=== PATIENT | female | born 1955 | race Asian ===

== ENCOUNTER 2019-12-31 12:32 | Inpatient (IN) | payer SELFPAY ==
[~2019-12-31] VITALS: Ht 157.5 cm; Wt 53.4 kg
[2019-12-31] MEDS ORDERED: ACETAMINOPHEN 650 MG SUPP ONE (13:19)
[2019-12-31] MEDS ORDERED: ACETAMINOPHEN 650 MG SUPP PR PRN (13:30)
[2019-12-31] MEDS ORDERED: SODIUM CHLORIDE 0.9% 1,000ML IVBOLUS ONE ×2 (13:30→16:30)
[2019-12-31] MEDS ORDERED: PIPERACILLIN/TAZO/PMX 3.375GM 50 ML IVPB ONE (13:30)
--- NOTE | 2019-12-31 13:31 | NUR ---
PER MD WATCH PT AT 85% ON VAPOTHERM. RR 40S. CRACKLES BILAT. RECTAL TYLENOL.
[2019-12-31] MEDS ORDERED: PIPERACILLIN/TAZO/PMX 3.375GM 50 ML ONE (13:33)
--- NOTE | 2019-12-31 13:46 | NUR ---
CALLED LAB RE: DELAY IN BLOOD. STS ON THE WAY. DAUGHTER AT BEDSIDE PIN MACHINE OPERATOR AWARE. EDUCATION PROVIDED.
--- NOTE | 2019-12-31 13:52 | NUR ---
DAUGHTER: SHEELA [phone]
--- NOTE | 2019-12-31 13:57 | NUR ---
IN ROOM FOR UPDATE, SPEAKING W DAUGHTER, DARCY PULIDO AFTER BLOOD CULTURES X2.
[2019-12-31 14:20] LABS: MEAN CORPUSCULAR HEMOGLOBIN 28.4 pg (27.0-34.8); MEAN CORPUSCULAR HGB CONC 32.2 g/dL (32.4-35.8); MEAN PLATELET VOLUME 8.9 fL (7.4-10.4); PLATELET COUNT 227 x10^3/uL (130-400); RED BLOOD COUNT 5.21 x10^6/uL (3.82-5.3)
--- NOTE | 2019-12-31 14:21 | NUR ---
PLAN TO INTUBATE. DAUGHTER TAKING ALL BELONGINGS.
[2019-12-31 14:25] LABS: ALBUMIN 2.7 g/dL (3.4-5.0); ANION GAP 8 mmol/L (5-15); CALCIUM 8.6 mg/dL (8.5-10.1); CHLORIDE 102 mmol/L (98-107); CREATININE 0.94 mg/dL (0.55-1.02)
[2019-12-31 14:30] LABS: TROPONIN I 0.034 ng/mL (0.000-0.045)
--- NOTE | 2019-12-31 14:40 | NUR ---
1425 20 MG ETOMIDATE/100 SUCCINOCHOLINE. NUMBER 8 TUBE 22 @ THE LIP PROP GTT INITIATED.
[2019-12-31 14:45] LABS: MD YES
[2019-12-31] MEDS ORDERED: FENTANYL PF 100 MCG/2ML ONE (14:57)
[2019-12-31] MEDS ORDERED: SUCCINYLCHOLINE 20 MG/ML, 10ML ONE (15:00)
[2019-12-31] MEDS ORDERED: ETOMIDATE 20 MG/10 ML ONE (15:00)
[2019-12-31] MEDS ORDERED: PROPOFOL 10 MG/ML, 100ML IV ONE (15:00)
[2019-12-31] MEDS ORDERED: SUCCINYLCHOLINE 20 MG/ML, 10ML IVPush ONE (15:00)
[2019-12-31] MEDS ORDERED: ETOMIDATE 20 MG/10 ML IV ONE (15:00)
[2019-12-31] MEDS ORDERED: PROPOFOL 100 ML IV PRN ×2 (15:00→15:30)
--- NOTE | 2019-12-31 15:01 | NUR ---
100 MCG FENTANYL PER VERBAL ORDER.
[2019-12-31] MEDS ORDERED: MIDAZOLAM 1 MG/ML, 2ML ONE ×2 (15:02→17:15)
--- NOTE | 2019-12-31 15:10 | NUR ---
bp low d/t difficulty sedating pt, 2nd liter ns infusing. as
--- NOTE | 2019-12-31 15:14 | NUR ---
1500-200 cc urine emptied out of summers. as
[2019-12-31] MEDS ORDERED: [UNRECOGNIZED DRUG - REMARK] (15:18)
--- NOTE | 2019-12-31 15:20 | NUR ---
prop paused. as
[2019-12-31] MEDS ORDERED: VANCOMYCIN PER PHARMACY MC PRN (15:30)
[2019-12-31] MEDS ORDERED: SENNA 176 MG/5 ML ORAL SOL NG PRN (15:30)
[2019-12-31] MEDS ORDERED: SENNA/DOCUSATE TABLET NG PRN (15:30)
[2019-12-31] MEDS ORDERED: LORazepam 2 MG/ML, 1ML IVPush PRN (15:30)
[2019-12-31] MEDS ORDERED: POLYETHYLENE GLYCOL 17 GM PACKET PO PRN (15:30)
[2019-12-31] MEDS ORDERED: ONDANSETRON 2MG/ML, 2ML IVPush PRN (15:30)
[2019-12-31] MEDS ORDERED: LABETALOL 5MG/ML, 20ML IVPush PRN (15:30)
[2019-12-31] MEDS ORDERED: DEXTROSE 50%, 50ML SYRINGE IVPush PRN (15:30)
[2019-12-31] MEDS ORDERED: LACTULOSE 20 GM/30 ML UDC NG PRN (15:30)
[2019-12-31] MEDS ORDERED: DEXTROSE 4 GM TAB.CHEW PO PRN (15:30)
[2019-12-31] MEDS ORDERED: PHARMACY MAY ADJ FOR RENAL FX MC SCH (15:30)
[2019-12-31] MEDS ORDERED: FENTANYL PF 100 MCG/2ML IV ONE (15:30)
[2019-12-31] MEDS ORDERED: NOREPINEPHRINE 32 MG in SODIUM CHLORIDE 0.9% 218 ML IV PRN (15:30)
[2019-12-31] MEDS ORDERED: LIDOCAINE-MPF 1%, 2ML ENDO PRN (15:30)
[2019-12-31] MEDS ORDERED: BISACODYL 10 MG SUPP PR PRN ×2 (15:30)
[2019-12-31] MEDS ORDERED: ONDANSETRON 2MG/ML, 2ML IV PRN (15:30)
[2019-12-31] MEDS ORDERED: MIDAZOLAM 1 MG/ML, 2ML IVPush ONE (15:30)
[2019-12-31] MEDS: DEXAMETHASONE 4 MG/ML, 1ML IVPush ONE ×2 (15:30→16:41)
[2019-12-31] MEDS: PIPERACILLIN/TAZO/PMX 3.375GM 50 ML IV SCH ×2 (15:30→23:19)
[2019-12-31] MEDS ORDERED: MIDAZOLAM HCL 50 MG in SODIUM CHLORIDE 0.9% 40 ML IV PRN (15:30)
[2019-12-31] MEDS ORDERED: GLUCAGON 1 MG IM PRN (15:30)
[2019-12-31] MEDS ORDERED: ENALAPRILAT 1.25 MG/ML, 2ML IVPush PRN (15:30)
[2019-12-31 15:32] LABS: BAND#(MANUAL) 0.49 x10^3/uL; BANDS%(MANUAL) 1 % (0-7); OTHER CELLS # (MANUAL) 0.98 x10^3/uL (0-0); OTHER CELLS % (MANUAL) 2 % (0-0); SEG#(MANUAL) 9.78 x10^3/uL (1.8-6.8); SEGS% (MANUAL) 20 % (42-75)
[2019-12-31 15:34] LABS: <RBC MORPHOLOGY> NORMAL
[2019-12-31 15:36] LABS: LYMPHS% (MANUAL) 64 % (22-44); MONOS#(MANUAL) 0.98 x10^3/uL (0.3-2.7); MONOS% (MANUAL) 2 % (2-9); REACTIVE LYMPHS # (MANUAL) 5.87 x10^3/uL (0-0); REACTIVE LYMPHS % (MANUAL) 12 % (0-0)
--- NOTE | 2019-12-31 15:40 | NUR ---
versed gtt infusing, 5 mg versed ivpush per md, pt very awake, md was in room. as
[2019-12-31 15:42] LABS: <PLATELET ESTIMATE> ADEQUATE; <PLT MORPHOLOGY> NORMAL PLT MORPH
[2019-12-31] MEDS ORDERED: REMDESIVIR 200 MG in SODIUM CHLORIDE 0.9% 250 ML IVPB ONE (16:00)
--- NOTE | 2019-12-31 16:10 | NUR ---
bp low boscovich aware plan levophed. as
--- NOTE | 2019-12-31 16:14 | NUR ---
1600-15 cc urine out. as
[2019-12-31] MEDS ORDERED: NOREPINEPHRINE 8 MG in SODIUM CHLORIDE 0.9% 242 ML IV PRN (16:30)
[2019-12-31] MEDS ORDERED: ENOXAPARIN 40 MG/0.4 ML ONE (16:36)
[2019-12-31] MEDS ORDERED: DEXAMETHASONE 4 MG/ML, 1ML ONE (16:36)
[2019-12-31] MEDS: ENOXAPARIN 40 MG/0.4 ML SQ SCH (16:41)
[2019-12-31 16:49] LABS: TRIGLYCERIDES 134 mg/dL (50-200)
--- NOTE | 2019-12-31 16:57 | NUR ---
covid swab walked to lab. as
[2019-12-31 16:58] LABS: TROPONIN I 0.131 ng/mL (0.000-0.045)
[2019-12-31] MEDS: ASCORBIC ACID 500 MG TABLET PO SCH (17:00)
[2019-12-31] MEDS: FENTANYL PF 1,000 MCG in SODIUM CHLORIDE 0.9% 80 ML IV PRN (17:03)
--- NOTE | 2019-12-31 17:04 | NUR ---
pt lightly sedated, arouses to touch, fentanyl gtt initiated. as
--- NOTE | 2019-12-31 17:09 | NUR ---
1700- 10 cc urine output. as
--- NOTE | 2019-12-31 17:36 | NUR ---
plan for centrla/art line. daughter updated on phone. per daughter, pt takes daily meds for htn and irregular heart beat but they are in french so unknown names. as
--- NOTE | 2019-12-31 18:00 | NUR ---
pt sedated w vss, awaiting md for lines. as
--- NOTE | 2019-12-31 18:58 | NUR ---
central line/art line by md. stone. as
[2019-12-31] MEDS ORDERED: PHARMACOKINETIC MONITORING MC PRN (19:00)
--- NOTE | 2019-12-31 19:08 | NUR ---
REPORT TO SANJAY SCHROEDER.
[2019-12-31] MEDS ORDERED: VANCOMYCIN 1,500 MG in SODIUM CHLORIDE 0.9% 250 ML IV ONE (20:00)
[2019-12-31] MEDS: SODIUM CHLORIDE FLUSH 10ML SYR IVF SCH (20:31)
[2019-12-31] MEDS: MIDAZOLAM HCL 50 MG in SODIUM CHLORIDE 0.9% 40 ML IV PRN (20:32)
[2019-12-31] MEDS: FAMOTIDINE 20 MG/2 ML IVPush SCH (20:57)
[2019-12-31 23:40] LABS: TROPONIN I 0.075 ng/mL (0.000-0.045)
[2020-01-01 03:10] LABS: RAPID INFLUENZA A Negative (Negative); RAPID INFLUENZA B Negative (Negative)
[2020-01-01 04:00] VITALS: BP 121/56
[2020-01-01 04:24] LABS: MEAN CORPUSCULAR HEMOGLOBIN 28.3 pg (27.0-34.8); MEAN CORPUSCULAR HGB CONC 32.4 g/dL (32.4-35.8); MEAN PLATELET VOLUME 8.7 fL (7.4-10.4); PLATELET COUNT 215 x10^3/uL (130-400); RED BLOOD COUNT 4.67 x10^6/uL (3.82-5.3)
[2020-01-01 04:32] LABS: ALANINE AMINOTRANSFERASE 42 U/L (12-78); ALBUMIN 2.1 g/dL (3.4-5.0); ANION GAP 8 mmol/L (5-15); CHLORIDE 110 mmol/L (98-107)
[2020-01-01 04:35] LABS: ALKALINE PHOSPHATASE 62 U/L (45-117); BILIRUBIN,TOTAL 0.9 mg/dL (0.2-1.0); CREATININE 0.74 mg/dL (0.55-1.02)
[2020-01-01] MEDS: FENTANYL PF 1,000 MCG in SODIUM CHLORIDE 0.9% 80 ML IV PRN (05:50)
[2020-01-01] MEDS: MIDAZOLAM HCL 50 MG in SODIUM CHLORIDE 0.9% 40 ML IV PRN (05:51)
[2020-01-01] MEDS: PIPERACILLIN/TAZO/PMX 3.375GM 50 ML IV SCH ×4 (05:59→23:26)
[2020-01-01 06:13] LABS: MD YES
[2020-01-01 07:07] LABS: LYMPH#(MANUAL) 35.55 x10^3/uL (1-3.4); LYMPHS% (MANUAL) 79 % (22-44); MONOS% (MANUAL) 2 % (2-9); REACTIVE LYMPHS # (MANUAL) 1.35 x10^3/uL (0-0); REACTIVE LYMPHS % (MANUAL) 3 % (0-0); SEGS% (MANUAL) 16 % (42-75)
[2020-01-01 07:08] LABS: <PLATELET ESTIMATE> ADEQUATE; <PLT MORPHOLOGY> NORMAL PLT MORPH; POLYCHROMASIA 1+
[2020-01-01] MEDS: POTASSIUM CHLORIDE 10% 40 MEQ/30 ML UDC PO SCH ×2 (08:09→22:55)
[2020-01-01] MEDS: ZINC SULFATE 220 MG CAPSULE PO SCH (08:09)
[2020-01-01] MEDS: CHOLECALCIFEROL 5,000u TAB PO SCH (08:09)
[2020-01-01] MEDS: ASCORBIC ACID 500 MG TABLET PO SCH ×2 (08:09→17:17)
[2020-01-01] MEDS: THIAMINE 100MG TABLET PO SCH (08:09)
[2020-01-01] MEDS: SENNA/DOCUSATE TABLET PO SCH (08:09)
[2020-01-01] MEDS: DEXAMETHASONE 4 MG/ML, 1ML IVPush SCH (08:10)
[2020-01-01] MEDS: SODIUM CHLORIDE FLUSH 10ML SYR IVF SCH ×2 (08:10→21:00)
[2020-01-01] MEDS: FAMOTIDINE 20 MG/2 ML IVPush SCH ×2 (08:10→22:55)
[2020-01-01] MEDS: PROPOFOL 100 ML IV PRN (09:10)
[2020-01-01] MEDS: ACETAMINOPHEN 325 MG TABLET PO PRN (10:20)
[2020-01-01] MEDS: VANCOMYCIN 1,200 MG in SODIUM CHLORIDE 0.9% 250 ML IV SCH (12:02)
[2020-01-01] MEDS: ENOXAPARIN 40 MG/0.4 ML SQ SCH (15:05)
[2020-01-01] MEDS ORDERED: VANCOMYCIN 1,200 MG in SODIUM CHLORIDE 0.9% 250 ML IV SCH (20:00)
[2020-01-01] MEDS: REMDESIVIR 100 MG in SODIUM CHLORIDE 0.9% 250 ML IVPB SCH (21:48)
[2020-01-02 03:12] LABS: MEAN CORPUSCULAR HEMOGLOBIN 28.3 pg (27.0-34.8); MEAN CORPUSCULAR HGB CONC 32.5 g/dL (32.4-35.8); MEAN PLATELET VOLUME 8.7 fL (7.4-10.4); PLATELET COUNT 207 x10^3/uL (130-400); RED BLOOD COUNT 4.54 x10^6/uL (3.82-5.3); RED CELL DISTRIBUTION WIDTH 15.2 % (9.6-15.2)
[2020-01-02 03:19] LABS: ALANINE AMINOTRANSFERASE 35 U/L (12-78); ANION GAP 8 mmol/L (5-15); CALCIUM 7.1 mg/dL (8.5-10.1); CHLORIDE 114 mmol/L (98-107); CREATININE 0.59 mg/dL (0.55-1.02)
[2020-01-02 03:21] LABS: ALKALINE PHOSPHATASE 57 U/L (45-117); BILIRUBIN,TOTAL 0.8 mg/dL (0.2-1.0); TOTAL PROTEIN 5.9 g/dL (6.4-8.2); VANCOMYCIN,RANDOM 7.9 mcg/mL
[2020-01-02 04:00] VITALS: BP 123/60
[2020-01-02] MEDS: PROPOFOL 100 ML IV PRN ×2 (04:01→20:50)
[2020-01-02 04:20] LABS: MD YES
[2020-01-02 04:27] LABS: LYMPH#(MANUAL) 12.65 x10^3/uL (1-3.4); LYMPHS% (MANUAL) 51 % (22-44); MONOS#(MANUAL) 0.74 x10^3/uL (0.3-2.7); MONOS% (MANUAL) 3 % (2-9); REACTIVE LYMPHS # (MANUAL) 3.72 x10^3/uL (0-0); REACTIVE LYMPHS % (MANUAL) 15 % (0-0); SEG#(MANUAL) 7.19 x10^3/uL (1.8-6.8); SEGS% (MANUAL) 29 % (42-75)
[2020-01-02 04:28] LABS: <PLATELET ESTIMATE> ADEQUATE; <PLT MORPHOLOGY> NORMAL PLT MORPH; <RBC MORPHOLOGY> NORMAL; OTHER CELLS % (MANUAL) 2 % (0-0)
[2020-01-02] MEDS: PIPERACILLIN/TAZO/PMX 3.375GM 50 ML IV SCH ×4 (04:50→23:26)
[2020-01-02] MEDS: VANCOMYCIN 1,200 MG in SODIUM CHLORIDE 0.9% 250 ML IV SCH (05:33)
[2020-01-02] MEDS: INSULIN LISPRO 100 UNITS/ML, PEN SQ-INSULIN SCH ×4 (07:30→22:12)
[2020-01-02] MEDS: ZINC SULFATE 220 MG CAPSULE PO SCH (09:22)
[2020-01-02] MEDS: DEXAMETHASONE 4 MG/ML, 1ML IVPush SCH (09:22)
[2020-01-02] MEDS: FUROSEMIDE 40 MG/4 ML IV SCH ×2 (09:22→17:11)
[2020-01-02] MEDS: SENNA/DOCUSATE TABLET PO SCH (09:23)
[2020-01-02] MEDS: ASCORBIC ACID 500 MG TABLET PO SCH ×2 (09:23→17:11)
[2020-01-02] MEDS: SODIUM CHLORIDE FLUSH 10ML SYR IVF SCH ×2 (09:23→20:49)
[2020-01-02] MEDS: THIAMINE 100MG TABLET PO SCH (09:23)
[2020-01-02] MEDS: CHOLECALCIFEROL 5,000u TAB PO SCH (09:24)
[2020-01-02] MEDS: ENOXAPARIN 40 MG/0.4 ML SQ SCH (15:02)
[2020-01-02] MEDS: REMDESIVIR 100 MG in SODIUM CHLORIDE 0.9% 250 ML IVPB SCH (20:49)
[2020-01-02] MEDS: FAMOTIDINE 20 MG/2 ML IVPush SCH (22:10)
[2020-01-03 04:22] VITALS: BP 120/55
[2020-01-03 04:23] LABS: ALANINE AMINOTRANSFERASE 29 U/L (12-78); ALBUMIN 2.1 g/dL (3.4-5.0); ANION GAP 6 mmol/L (5-15); CALCIUM 7.2 mg/dL (8.5-10.1); CHLORIDE 111 mmol/L (98-107); TRIGLYCERIDES 168 mg/dL (50-200)
[2020-01-03 04:26] LABS: ALKALINE PHOSPHATASE 61 U/L (45-117); BILIRUBIN,TOTAL 0.7 mg/dL (0.2-1.0); TOTAL PROTEIN 6.1 g/dL (6.4-8.2)
[2020-01-03 04:46] LABS: MEAN CORPUSCULAR HEMOGLOBIN 28.3 pg (27.0-34.8); MEAN CORPUSCULAR HGB CONC 32.7 g/dL (32.4-35.8); MEAN PLATELET VOLUME 8.7 fL (7.4-10.4); PLATELET COUNT 285 x10^3/uL (130-400); RED BLOOD COUNT 4.86 x10^6/uL (3.82-5.3)
[2020-01-03] MEDS: PROPOFOL 100 ML IV PRN ×4 (05:04→21:51)
[2020-01-03] MEDS: PIPERACILLIN/TAZO/PMX 3.375GM 50 ML IV SCH ×4 (05:09→21:52)
[2020-01-03 06:09] LABS: MD YES
[2020-01-03 06:13] LABS: <PLATELET ESTIMATE> ADEQUATE; LYMPH#(MANUAL) 15.27 x10^3/uL (1-3.4); LYMPHS% (MANUAL) 44 % (22-44); MONOS#(MANUAL) 1.39 x10^3/uL (0.3-2.7); MONOS% (MANUAL) 4 % (2-9); REACTIVE LYMPHS # (MANUAL) 6.94 x10^3/uL (0-0); REACTIVE LYMPHS % (MANUAL) 20 % (0-0); SEGS% (MANUAL) 32 % (42-75); SMUDGE CELLS 1+
[2020-01-03 06:14] LABS: <PLT MORPHOLOGY> NORMAL PLT MORPH; POLYCHROMASIA 1+
[2020-01-03] MEDS: SODIUM CHLORIDE FLUSH 10ML SYR IVF SCH ×2 (09:01→21:00)
[2020-01-03] MEDS: FUROSEMIDE 40 MG/4 ML IV SCH ×2 (09:01→16:53)
[2020-01-03] MEDS: INSULIN LISPRO 100 UNITS/ML, PEN SQ-INSULIN SCH ×4 (10:40→20:40)
[2020-01-03] MEDS: THIAMINE 100MG TABLET PO SCH (10:41)
[2020-01-03] MEDS: DEXAMETHASONE 4 MG/ML, 1ML IVPush SCH (10:41)
[2020-01-03] MEDS: ZINC SULFATE 220 MG CAPSULE PO SCH (10:41)
[2020-01-03] MEDS: SENNA/DOCUSATE TABLET PO SCH (10:41)
[2020-01-03] MEDS: ASCORBIC ACID 500 MG TABLET PO SCH ×2 (10:41→16:52)
[2020-01-03] MEDS: CHOLECALCIFEROL 5,000u TAB PO SCH (10:41)
[2020-01-03] MEDS: FENTANYL PF 1,000 MCG in SODIUM CHLORIDE 0.9% 80 ML IV PRN (14:01)
[2020-01-03] MEDS: ENOXAPARIN 40 MG/0.4 ML SQ SCH (15:25)
[2020-01-03] MEDS: FAMOTIDINE 20 MG/2 ML IVPush SCH (21:51)
[2020-01-03] MEDS: REMDESIVIR 100 MG in SODIUM CHLORIDE 0.9% 250 ML IVPB SCH (22:13)
[2020-01-04 04:00] VITALS: BP 101/52
[2020-01-04] MEDS: INSULIN LISPRO 100 UNITS/ML, PEN SQ-INSULIN SCH ×4 (04:20→20:39)
[2020-01-04 06:01] LABS: ALANINE AMINOTRANSFERASE 20 U/L (12-78); ALBUMIN 1.6 g/dL (3.4-5.0); CREATININE 0.57 mg/dL (0.55-1.02)
[2020-01-04 06:04] LABS: ALKALINE PHOSPHATASE 52 U/L (45-117); BILIRUBIN,TOTAL 0.4 mg/dL (0.2-1.0); TOTAL PROTEIN 4.5 g/dL (6.4-8.2)
[2020-01-04 06:10] LABS: ANION GAP 7 mmol/L (5-15); CHLORIDE 118 mmol/L (98-107)
[2020-01-04] MEDS: PIPERACILLIN/TAZO/PMX 3.375GM 50 ML IV SCH ×4 (06:33→21:35)
[2020-01-04] MEDS: ASCORBIC ACID 500 MG TABLET PO SCH ×2 (08:26→17:11)
[2020-01-04] MEDS: FUROSEMIDE 40 MG/4 ML IV SCH (08:26)
[2020-01-04] MEDS: DEXAMETHASONE 4 MG/ML, 1ML IVPush SCH (08:26)
[2020-01-04] MEDS: CHOLECALCIFEROL 5,000u TAB PO SCH (08:27)
[2020-01-04] MEDS: SODIUM CHLORIDE FLUSH 10ML SYR IVF SCH ×2 (08:27→20:55)
[2020-01-04] MEDS: ZINC SULFATE 220 MG CAPSULE PO SCH (08:27)
[2020-01-04] MEDS: THIAMINE 100MG TABLET PO SCH (08:27)
[2020-01-04] MEDS: SENNA/DOCUSATE TABLET PO SCH (08:27)
[2020-01-04] MEDS: FAMOTIDINE 20 MG/2 ML IVPush SCH ×2 (08:29→20:55)
[2020-01-04 08:35] LABS: MEAN CORPUSCULAR HEMOGLOBIN 28.6 pg (27.0-34.8); MEAN CORPUSCULAR HGB CONC 32.6 g/dL (32.4-35.8); MEAN PLATELET VOLUME 8.1 fL (7.4-10.4); PLATELET COUNT 244 x10^3/uL (130-400); RED CELL DISTRIBUTION WIDTH 15.1 % (9.6-15.2)
[2020-01-04 09:24] LABS: MD YES
[2020-01-04 09:25] LABS: LYMPH#(MANUAL) 16.83 x10^3/uL (1-3.4); LYMPHS% (MANUAL) 71 % (22-44); MONOS#(MANUAL) 0.24 x10^3/uL (0.3-2.7); MONOS% (MANUAL) 1 % (2-9); SEG#(MANUAL) 6.64 x10^3/uL (1.8-6.8); SEGS% (MANUAL) 28 % (42-75)
[2020-01-04 09:26] LABS: <PLATELET ESTIMATE> ADEQUATE; <PLT MORPHOLOGY> NORMAL PLT MORPH; ANISOCYTOSIS 1+; SMUDGE CELLS 1+
[2020-01-04] MEDS: FENTANYL PF 1,000 MCG in SODIUM CHLORIDE 0.9% 80 ML IV PRN ×2 (09:35→21:35)
[2020-01-04] MEDS: PROPOFOL 100 ML IV PRN ×2 (09:36→16:20)
[2020-01-04] MEDS: POTASSIUM CHLORIDE 10% 40 MEQ/30 ML UDC PO SCH ×2 (09:47→20:55)
[2020-01-04] MEDS: ENOXAPARIN 40 MG/0.4 ML SQ SCH (16:19)
[2020-01-04] MEDS: REMDESIVIR 100 MG in SODIUM CHLORIDE 0.9% 250 ML IVPB SCH (21:34)
[2020-01-05 04:00] VITALS: BP 143/72
[2020-01-05] MEDS: INSULIN LISPRO 100 UNITS/ML, PEN SQ-INSULIN SCH ×4 (04:00→21:31)
[2020-01-05 05:10] LABS: ANION GAP 3 mmol/L (5-15); CALCIUM 7.8 mg/dL (8.5-10.1); CHLORIDE 110 mmol/L (98-107); MEAN CORPUSCULAR HEMOGLOBIN 28.6 pg (27.0-34.8); MEAN CORPUSCULAR HGB CONC 32.8 g/dL (32.4-35.8); MEAN PLATELET VOLUME 8.5 fL (7.4-10.4); PLATELET COUNT 257 x10^3/uL (130-400); RED BLOOD COUNT 4.75 x10^6/uL (3.82-5.3); RED CELL DISTRIBUTION WIDTH 15.4 % (9.6-15.2)
[2020-01-05] MEDS: PIPERACILLIN/TAZO/PMX 3.375GM 50 ML IV SCH (05:18)
[2020-01-05] MEDS: FENTANYL PF 1,000 MCG in SODIUM CHLORIDE 0.9% 80 ML IV PRN (05:28)
[2020-01-05] MEDS: PROPOFOL 100 ML IV PRN ×3 (06:03→18:11)
[2020-01-05 06:17] LABS: MD YES
[2020-01-05 06:39] LABS: EOS#(MANUAL) 0.24 x10^3/uL (0.0-0.4); EOS% (MANUAL) 1 % (1-7); LYMPH#(MANUAL) 12.56 x10^3/uL (1-3.4); LYMPHS% (MANUAL) 53 % (22-44); MONOS#(MANUAL) 1.19 x10^3/uL (0.3-2.7); MONOS% (MANUAL) 5 % (2-9); REACTIVE LYMPHS # (MANUAL) 0.71 x10^3/uL (0-0); REACTIVE LYMPHS % (MANUAL) 3 % (0-0); SEG#(MANUAL) 9.01 x10^3/uL (1.8-6.8)
[2020-01-05 06:40] LABS: SEGS% (MANUAL) 38 % (42-75)
[2020-01-05 06:41] LABS: <PLATELET ESTIMATE> ADEQUATE; <PLT MORPHOLOGY> NORMAL PLT MORPH; ANISOCYTOSIS 1+; SMUDGE CELLS 1+
[2020-01-05] MEDS: CEFTRIAXONE PMX 2GM/50ML 50 ML IVPB SCH (08:10)
[2020-01-05] MEDS: FAMOTIDINE 20 MG/2 ML IVPush SCH ×2 (08:51→20:43)
[2020-01-05] MEDS: FUROSEMIDE 40 MG/4 ML IV SCH (08:51)
[2020-01-05] MEDS: AZITHROMYCIN 500 MG TABLET PO SCH (08:52)
[2020-01-05] MEDS: ASCORBIC ACID 500 MG TABLET PO SCH ×2 (08:52→17:28)
[2020-01-05] MEDS: DEXAMETHASONE 4 MG/ML, 1ML IVPush SCH (08:52)
[2020-01-05] MEDS: SODIUM CHLORIDE FLUSH 10ML SYR IVF SCH ×2 (08:52→20:43)
[2020-01-05] MEDS: THIAMINE 100MG TABLET PO SCH (08:52)
[2020-01-05] MEDS: ZINC SULFATE 220 MG CAPSULE PO SCH (08:52)
[2020-01-05] MEDS: SENNA/DOCUSATE TABLET PO SCH (08:52)
[2020-01-05] MEDS: CHOLECALCIFEROL 5,000u TAB PO SCH (08:53)
[2020-01-05] MEDS ORDERED: MIDAZOLAM 1 MG/ML, 2ML IV PRN (11:00)
[2020-01-05] MEDS: ENOXAPARIN 40 MG/0.4 ML SQ SCH (15:16)
[2020-01-06] MEDS: PROPOFOL 100 ML IV PRN ×2 (00:03→04:44)
[2020-01-06] MEDS: INSULIN LISPRO 100 UNITS/ML, PEN SQ-INSULIN SCH ×4 (03:13→20:54)
[2020-01-06 04:00] VITALS: BP 91/54
[2020-01-06 05:25] LABS: ALANINE AMINOTRANSFERASE 32 U/L (12-78); ALBUMIN 2.4 g/dL (3.4-5.0); ANION GAP 10 mmol/L (5-15); CALCIUM 8.3 mg/dL (8.5-10.1); CHLORIDE 107 mmol/L (98-107); CREATININE 0.92 mg/dL (0.55-1.02)
[2020-01-06 05:27] LABS: ALKALINE PHOSPHATASE 64 U/L (45-117); BILIRUBIN,TOTAL 0.7 mg/dL (0.2-1.0); TOTAL PROTEIN 6.4 g/dL (6.4-8.2); TRIGLYCERIDES 417 mg/dL (50-200)
[2020-01-06 05:34] LABS: MEAN CORPUSCULAR HEMOGLOBIN 28.6 pg (27.0-34.8); MEAN CORPUSCULAR HGB CONC 32.8 g/dL (32.4-35.8); MEAN PLATELET VOLUME 8.5 fL (7.4-10.4); PLATELET COUNT 251 x10^3/uL (130-400); RED BLOOD COUNT 4.71 x10^6/uL (3.82-5.3); RED CELL DISTRIBUTION WIDTH 14.9 % (9.6-15.2)
[2020-01-06 06:10] LABS: MD YES
[2020-01-06 06:24] LABS: BAND#(MANUAL) 0.71 x10^3/uL; BANDS%(MANUAL) 3 % (0-7); LYMPH#(MANUAL) 13.45 x10^3/uL (1-3.4); LYMPHS% (MANUAL) 57 % (22-44); MONOS#(MANUAL) 0.94 x10^3/uL (0.3-2.7); MONOS% (MANUAL) 4 % (2-9); SEGS% (MANUAL) 36 % (42-75)
[2020-01-06 06:27] LABS: <PLATELET ESTIMATE> ADEQUATE; <PLT MORPHOLOGY> NORMAL PLT MORPH; <RBC MORPHOLOGY> NORMAL
[2020-01-06 06:28] LABS: SMUDGE CELLS 1+
[2020-01-06] MEDS: CEFTRIAXONE PMX 2GM/50ML 50 ML IVPB SCH (08:17)
[2020-01-06] MEDS: ASCORBIC ACID 500 MG TABLET PO SCH ×2 (08:17→15:55)
[2020-01-06] MEDS: SODIUM CHLORIDE FLUSH 10ML SYR IVF SCH ×2 (09:40→20:58)
[2020-01-06] MEDS: FUROSEMIDE 40 MG/4 ML IV SCH (09:40)
[2020-01-06] MEDS: CHOLECALCIFEROL 5,000u TAB PO SCH (09:41)
[2020-01-06] MEDS: SENNA/DOCUSATE TABLET PO SCH (09:41)
[2020-01-06] MEDS: ZINC SULFATE 220 MG CAPSULE PO SCH (09:41)
[2020-01-06] MEDS: AZITHROMYCIN 500 MG TABLET PO SCH (09:41)
[2020-01-06] MEDS: THIAMINE 100MG TABLET PO SCH (09:41)
[2020-01-06] MEDS: DEXAMETHASONE 4 MG/ML, 1ML IVPush SCH (09:41)
[2020-01-06] MEDS: FAMOTIDINE 20 MG/2 ML IVPush SCH ×2 (09:41→20:58)
[2020-01-06] MEDS: ENOXAPARIN 40 MG/0.4 ML SQ SCH (14:59)
[2020-01-07] MEDS: OXYcodone IR 5MG TABLET PO PRN (01:53)
[2020-01-07 02:30] VITALS: BP 110/66
[2020-01-07] MEDS: INSULIN LISPRO 100 UNITS/ML, PEN SQ-INSULIN SCH ×4 (03:17→20:02)
[2020-01-07 04:32] LABS: BASOPHILS % (AUTO) 0 % (0-1); EOSINOPHILS % (AUTO) 1 % (1-7); LYMPHOCYTES % (AUTO) 12 % (22-44); MEAN CORPUSCULAR HEMOGLOBIN 28.6 pg (27.0-34.8); MEAN CORPUSCULAR HGB CONC 32.9 g/dL (32.4-35.8); MEAN PLATELET VOLUME 8.5 fL (7.4-10.4); MONOCYTES % (AUTO) 36 % (2-9); NEUTROPHILS % (AUTO) 51 % (42-75); PLATELET COUNT 233 x10^3/uL (130-400); RED BLOOD COUNT 4.75 x10^6/uL (3.82-5.3)
[2020-01-07 04:35] LABS: ALBUMIN 2.3 g/dL (3.4-5.0); ANION GAP 5 mmol/L (5-15); CALCIUM 8.5 mg/dL (8.5-10.1); CHLORIDE 107 mmol/L (98-107)
[2020-01-07 04:42] LABS: ALANINE AMINOTRANSFERASE 30 U/L (12-78); ALKALINE PHOSPHATASE 65 U/L (45-117); BILIRUBIN,TOTAL 0.8 mg/dL (0.2-1.0); CREATININE 0.73 mg/dL (0.55-1.02); TOTAL PROTEIN 6.1 g/dL (6.4-8.2)
[2020-01-07 05:07] LABS: MD SCAN
[2020-01-07] MEDS: SENNA/DOCUSATE TABLET PO SCH (09:00)
[2020-01-07] MEDS: CHOLECALCIFEROL 5,000u TAB PO SCH (09:14)
[2020-01-07] MEDS: AZITHROMYCIN 500 MG TABLET PO SCH (09:14)
[2020-01-07] MEDS: ZINC SULFATE 220 MG CAPSULE PO SCH (09:14)
[2020-01-07] MEDS: ASCORBIC ACID 500 MG TABLET PO SCH ×2 (09:14→16:28)
[2020-01-07] MEDS: FAMOTIDINE 20 MG/2 ML IVPush SCH (09:15)
[2020-01-07] MEDS: THIAMINE 100MG TABLET PO SCH (09:15)
[2020-01-07] MEDS: DEXAMETHASONE 4 MG/ML, 1ML IVPush SCH (09:16)
[2020-01-07] MEDS: FUROSEMIDE 40 MG/4 ML IV SCH (09:16)
[2020-01-07] MEDS: SODIUM CHLORIDE FLUSH 10ML SYR IVF SCH ×2 (09:16→20:58)
[2020-01-07] MEDS: CEFTRIAXONE PMX 2GM/50ML 50 ML IVPB SCH (09:25)
[2020-01-07] MEDS: ENOXAPARIN 40 MG/0.4 ML SQ SCH (15:31)
[2020-01-08 04:00] VITALS: BP 111/68
[2020-01-08] MEDS: INSULIN LISPRO 100 UNITS/ML, PEN SQ-INSULIN SCH ×4 (04:29→19:57)
[2020-01-08 05:06] LABS: ALANINE AMINOTRANSFERASE 28 U/L (12-78); ALBUMIN 2.5 g/dL (3.4-5.0); ANION GAP 8 mmol/L (5-15); CALCIUM 8.6 mg/dL (8.5-10.1); CHLORIDE 106 mmol/L (98-107)
[2020-01-08 05:09] LABS: ALKALINE PHOSPHATASE 75 U/L (45-117); BILIRUBIN,TOTAL 0.7 mg/dL (0.2-1.0); TOTAL PROTEIN 6.7 g/dL (6.4-8.2)
[2020-01-08 05:38] LABS: MEAN CORPUSCULAR HEMOGLOBIN 28.8 pg (27.0-34.8); MEAN CORPUSCULAR HGB CONC 32.9 g/dL (32.4-35.8); PLATELET COUNT 218 x10^3/uL (130-400); RED CELL DISTRIBUTION WIDTH 15.1 % (9.6-15.2)
[2020-01-08 06:23] LABS: BAND#(MANUAL) 0.19 x10^3/uL; BANDS%(MANUAL) 1 % (0-7); MD YES
[2020-01-08 06:24] LABS: EOS#(MANUAL) 0.19 x10^3/uL (0.0-0.4); EOS% (MANUAL) 1 % (1-7); MONOS#(MANUAL) 0.95 x10^3/uL (0.3-2.7); MONOS% (MANUAL) 5 % (2-9); SEG#(MANUAL) 9.26 x10^3/uL (1.8-6.8); SEGS% (MANUAL) 49 % (42-75)
[2020-01-08 06:26] LABS: LYMPH#(MANUAL) 2.65 x10^3/uL (1-3.4); LYMPHS% (MANUAL) 14 % (22-44); REACTIVE LYMPHS # (MANUAL) 5.67 x10^3/uL (0-0); REACTIVE LYMPHS % (MANUAL) 30 % (0-0)
[2020-01-08 06:27] LABS: <PLATELET ESTIMATE> ADEQUATE; <PLT MORPHOLOGY> NORMAL PLT MORPH; <RBC MORPHOLOGY> NORMAL; SMUDGE CELLS 1+
[2020-01-08] MEDS: SENNA/DOCUSATE TABLET PO SCH (09:00)
[2020-01-08] MEDS: ASCORBIC ACID 500 MG TABLET PO SCH ×2 (09:40→15:41)
[2020-01-08] MEDS: CHOLECALCIFEROL 5,000u TAB PO SCH (09:40)
[2020-01-08] MEDS: ZINC SULFATE 220 MG CAPSULE PO SCH (09:40)
[2020-01-08] MEDS: FAMOTIDINE 20 MG/2 ML IVPush SCH (09:40)
[2020-01-08] MEDS: THIAMINE 100MG TABLET PO SCH (09:41)
[2020-01-08] MEDS: FUROSEMIDE 40 MG/4 ML IV SCH (09:41)
[2020-01-08] MEDS: SODIUM CHLORIDE FLUSH 10ML SYR IVF SCH ×2 (09:41→19:58)
[2020-01-08] MEDS: AZITHROMYCIN 500 MG TABLET PO SCH (09:41)
[2020-01-08] MEDS: CEFTRIAXONE PMX 2GM/50ML 50 ML IVPB SCH (09:46)
[2020-01-08] MEDS: ENOXAPARIN 40 MG/0.4 ML SQ SCH (15:30)
[2020-01-08] MEDS: ACETAMINOPHEN 325 MG TABLET PO PRN (21:08)
[2020-01-09] MEDS: INSULIN LISPRO 100 UNITS/ML, PEN SQ-INSULIN SCH ×4 (02:42→20:08)
[2020-01-09 03:57] LABS: MEAN CORPUSCULAR HEMOGLOBIN 29.1 pg (27.0-34.8); MEAN CORPUSCULAR HGB CONC 33.2 g/dL (32.4-35.8); MEAN PLATELET VOLUME 8.5 fL (7.4-10.4); PLATELET COUNT 210 x10^3/uL (130-400); RED BLOOD COUNT 4.83 x10^6/uL (3.82-5.3); RED CELL DISTRIBUTION WIDTH 15.1 % (9.6-15.2)
[2020-01-09 04:07] LABS: ANION GAP 7 mmol/L (5-15); CALCIUM 8.6 mg/dL (8.5-10.1); CHLORIDE 104 mmol/L (98-107); CREATININE 0.82 mg/dL (0.55-1.02); TRIGLYCERIDES 298 mg/dL (50-200)
[2020-01-09 04:29] LABS: MD YES
[2020-01-09 04:33] LABS: <PLATELET ESTIMATE> ADEQUATE; <PLT MORPHOLOGY> NORMAL PLT MORPH; <RBC MORPHOLOGY> NORMAL; BAND#(MANUAL) 0.19 x10^3/uL; BANDS%(MANUAL) 1 % (0-7); EOS#(MANUAL) 0.39 x10^3/uL (0.0-0.4); EOS% (MANUAL) 2 % (1-7); LYMPH#(MANUAL) 3.86 x10^3/uL (1-3.4); LYMPHS% (MANUAL) 20 % (22-44); MONOS#(MANUAL) 1.35 x10^3/uL (0.3-2.7); MONOS% (MANUAL) 7 % (2-9); REACTIVE LYMPHS % (MANUAL) 15 % (0-0); SEG#(MANUAL) 10.62 x10^3/uL (1.8-6.8); SEGS% (MANUAL) 55 % (42-75)
[2020-01-09] MEDS: ZINC SULFATE 220 MG CAPSULE PO SCH (08:42)
[2020-01-09] MEDS: CEFTRIAXONE PMX 2GM/50ML 50 ML IVPB SCH (08:42)
[2020-01-09] MEDS: ASCORBIC ACID 500 MG TABLET PO SCH ×2 (08:43→16:05)
[2020-01-09] MEDS: SENNA/DOCUSATE TABLET PO SCH (08:43)
[2020-01-09] MEDS: THIAMINE 100MG TABLET PO SCH (08:43)
[2020-01-09] MEDS: SODIUM CHLORIDE FLUSH 10ML SYR IVF SCH ×2 (08:43→20:08)
[2020-01-09] MEDS: FAMOTIDINE 20 MG/2 ML IVPush SCH (08:43)
[2020-01-09] MEDS: FUROSEMIDE 40 MG/4 ML IV SCH (08:43)
[2020-01-09] MEDS: CHOLECALCIFEROL 5,000u TAB PO SCH (08:44)
[2020-01-09] MEDS: AZITHROMYCIN 500 MG TABLET PO SCH (08:54)
[2020-01-09] MEDS: PSYLLIUM PACKET PO SCH (11:00)
[2020-01-09] MEDS: ENOXAPARIN 40 MG/0.4 ML SQ SCH (15:30)
[2020-01-09] MEDS: OXYcodone IR 5MG TABLET PO PRN (20:18)
[2020-01-10] MEDS: INSULIN LISPRO 100 UNITS/ML, PEN SQ-INSULIN SCH ×4 (03:51→20:52)
[2020-01-10 04:00] VITALS: BP 100/63
[2020-01-10] MEDS: ACETAMINOPHEN 325 MG TABLET PO PRN (04:13)
[2020-01-10 04:43] LABS: ANION GAP 4 mmol/L (5-15); CALCIUM 8.6 mg/dL (8.5-10.1); CHLORIDE 102 mmol/L (98-107); CREATININE 0.81 mg/dL (0.55-1.02); MEAN CORPUSCULAR HEMOGLOBIN 28.7 pg (27.0-34.8); MEAN CORPUSCULAR HGB CONC 32.7 g/dL (32.4-35.8); MEAN PLATELET VOLUME 9.3 fL (7.4-10.4); PLATELET COUNT 183 x10^3/uL (130-400); RED BLOOD COUNT 4.73 x10^6/uL (3.82-5.3); RED CELL DISTRIBUTION WIDTH 15.3 % (9.6-15.2)
[2020-01-10 06:05] LABS: MD YES
[2020-01-10 06:24] LABS: BANDS%(MANUAL) 2 % (0-7); EOS#(MANUAL) 0.61 x10^3/uL (0.0-0.4); EOS% (MANUAL) 3 % (1-7); REACTIVE LYMPHS # (MANUAL) 5.05 x10^3/uL (0-0); REACTIVE LYMPHS % (MANUAL) 25 % (0-0); SEG#(MANUAL) 8.48 x10^3/uL (1.8-6.8); SEGS% (MANUAL) 42 % (42-75)
[2020-01-10 06:26] LABS: LYMPH#(MANUAL) 4.04 x10^3/uL (1-3.4); LYMPHS% (MANUAL) 20 % (22-44); MONOS#(MANUAL) 1.62 x10^3/uL (0.3-2.7); MONOS% (MANUAL) 8 % (2-9); SMUDGE CELLS 1+
[2020-01-10 06:27] LABS: <PLATELET ESTIMATE> ADEQUATE; <PLT MORPHOLOGY> NORMAL PLT MORPH; <RBC MORPHOLOGY> NORMAL
[2020-01-10] MEDS: FAMOTIDINE 20 MG/2 ML IVPush SCH (08:52)
[2020-01-10] MEDS: FUROSEMIDE 40 MG/4 ML IV SCH (08:52)
[2020-01-10] MEDS: ZINC SULFATE 220 MG CAPSULE PO SCH (08:54)
[2020-01-10] MEDS: ASCORBIC ACID 500 MG TABLET PO SCH ×2 (08:54→16:36)
[2020-01-10] MEDS: SENNA/DOCUSATE TABLET PO SCH (08:55)
[2020-01-10] MEDS: CHOLECALCIFEROL 5,000u TAB PO SCH (08:55)
[2020-01-10] MEDS: THIAMINE 100MG TABLET PO SCH (08:55)
[2020-01-10] MEDS: AZITHROMYCIN 500 MG TABLET PO SCH (08:56)
[2020-01-10] MEDS: PSYLLIUM PACKET PO SCH (08:58)
[2020-01-10] MEDS: SODIUM CHLORIDE FLUSH 10ML SYR IVF SCH ×2 (09:02→21:26)
[2020-01-10] MEDS: CEFTRIAXONE PMX 2GM/50ML 50 ML IVPB SCH (11:47)
[2020-01-10] MEDS: ENOXAPARIN 40 MG/0.4 ML SQ SCH (15:14)
[2020-01-11] MEDS: INSULIN LISPRO 100 UNITS/ML, PEN SQ-INSULIN SCH ×4 (02:48→20:19)
[2020-01-11 04:00] VITALS: BP 94/61
[2020-01-11 05:44] LABS: MEAN CORPUSCULAR HEMOGLOBIN 28.7 pg (27.0-34.8); MEAN CORPUSCULAR HGB CONC 32.9 g/dL (32.4-35.8); MEAN PLATELET VOLUME 8.6 fL (7.4-10.4); PLATELET COUNT 153 x10^3/uL (130-400); RED BLOOD COUNT 4.79 x10^6/uL (3.82-5.3)
[2020-01-11 05:51] LABS: ANION GAP 5 mmol/L (5-15); CALCIUM 8.3 mg/dL (8.5-10.1); CHLORIDE 100 mmol/L (98-107); CREATININE 0.69 mg/dL (0.55-1.02)
[2020-01-11 06:46] LABS: MD YES
[2020-01-11 06:51] LABS: BAND#(MANUAL) 0.76 x10^3/uL; BANDS%(MANUAL) 4 % (0-7); EOS#(MANUAL) 0.76 x10^3/uL (0.0-0.4); EOS% (MANUAL) 4 % (1-7); LYMPH#(MANUAL) 4.18 x10^3/uL (1-3.4); LYMPHS% (MANUAL) 22 % (22-44); MONOS#(MANUAL) 1.33 x10^3/uL (0.3-2.7); MONOS% (MANUAL) 7 % (2-9); REACTIVE LYMPHS # (MANUAL) 4.94 x10^3/uL (0-0); REACTIVE LYMPHS % (MANUAL) 26 % (0-0); SEG#(MANUAL) 7.03 x10^3/uL (1.8-6.8); SEGS% (MANUAL) 37 % (42-75)
[2020-01-11 06:53] LABS: <RBC MORPHOLOGY> NORMAL; SMUDGE CELLS 1+
[2020-01-11 06:54] LABS: <PLATELET ESTIMATE> ADEQUATE; <PLT MORPHOLOGY> NORMAL PLT MORPH
[2020-01-11] MEDS: SODIUM CHLORIDE FLUSH 10ML SYR IVF SCH ×2 (09:00→20:20)
[2020-01-11] MEDS: PSYLLIUM PACKET PO SCH (09:36)
[2020-01-11] MEDS: SENNA/DOCUSATE TABLET PO SCH (09:36)
[2020-01-11] MEDS: ASCORBIC ACID 500 MG TABLET PO SCH ×2 (09:37→17:13)
[2020-01-11] MEDS: FUROSEMIDE 40 MG/4 ML IV SCH (09:37)
[2020-01-11] MEDS: FAMOTIDINE 20 MG/2 ML IVPush SCH (09:37)
[2020-01-11] MEDS: THIAMINE 100MG TABLET PO SCH (09:37)
[2020-01-11] MEDS: ZINC SULFATE 220 MG CAPSULE PO SCH (09:38)
[2020-01-11] MEDS: CEFTRIAXONE PMX 2GM/50ML 50 ML IVPB SCH (09:38)
[2020-01-11] MEDS: CHOLECALCIFEROL 5,000u TAB PO SCH (09:38)
[2020-01-11] MEDS: MIDODRINE 5 MG TABLET PO SCH ×3 (11:07→20:20)
[2020-01-11 14:15] VITALS: BP 97/61
[2020-01-11] MEDS: ENOXAPARIN 40 MG/0.4 ML SQ SCH (15:30)
[2020-01-11 20:24] VITALS: BP 95/62
[2020-01-12 01:36] VITALS: BP 131/75
[2020-01-12] MEDS: INSULIN LISPRO 100 UNITS/ML, PEN SQ-INSULIN SCH ×4 (07:00→21:00)
[2020-01-12] MEDS: ZINC SULFATE 220 MG CAPSULE PO SCH (07:59)
[2020-01-12] MEDS: ASCORBIC ACID 500 MG TABLET PO SCH ×2 (07:59→16:28)
[2020-01-12] MEDS: THIAMINE 100MG TABLET PO SCH (07:59)
[2020-01-12] MEDS: MIDODRINE 5 MG TABLET PO SCH ×3 (07:59→21:44)
[2020-01-12] MEDS: CHOLECALCIFEROL 5,000u TAB PO SCH (07:59)
[2020-01-12] MEDS: FAMOTIDINE 20 MG/2 ML IVPush SCH (07:59)
[2020-01-12] MEDS: PSYLLIUM PACKET PO SCH (08:00)
[2020-01-12] MEDS: SODIUM CHLORIDE FLUSH 10ML SYR IVF SCH ×2 (08:00→21:44)
[2020-01-12] MEDS: CEFTRIAXONE PMX 2GM/50ML 50 ML IVPB SCH (10:51)
[2020-01-12 11:03] VITALS: BP 121/76
[2020-01-12 14:00] VITALS: BP 108/69
[2020-01-12] MEDS: ENOXAPARIN 40 MG/0.4 ML SQ SCH (16:28)
[2020-01-12 19:59] VITALS: BP 114/72
[2020-01-12] MEDS: FAMOTIDINE 20 MG TABLET PO SCH (21:44)
[2020-01-13 03:00] VITALS: BP 97/62
[2020-01-13] MEDS: INSULIN LISPRO 100 UNITS/ML, PEN SQ-INSULIN SCH ×3 (03:00→15:00)
[2020-01-13 07:56] VITALS: BP 109/68
[2020-01-13] MEDS: ASCORBIC ACID 500 MG TABLET PO SCH ×2 (08:31→16:30)
[2020-01-13] MEDS: CHOLECALCIFEROL 5,000u TAB PO SCH (08:31)
[2020-01-13] MEDS: PSYLLIUM PACKET PO SCH ×2 (08:31→08:48)
[2020-01-13] MEDS: THIAMINE 100MG TABLET PO SCH (08:31)
[2020-01-13] MEDS: FAMOTIDINE 20 MG TABLET PO SCH (08:31)
[2020-01-13] MEDS: MIDODRINE 5 MG TABLET PO SCH ×2 (08:39→16:30)
[2020-01-13] MEDS: ZINC SULFATE 220 MG CAPSULE PO SCH (08:39)
[2020-01-13] MEDS: SODIUM CHLORIDE FLUSH 10ML SYR IVF SCH (08:39)
[2020-01-13 14:00] VITALS: BP 109/66
[2020-01-13] MEDS: ENOXAPARIN 40 MG/0.4 ML SQ SCH (15:30)
== END 2020-01-13 18:02 | disposition home or self-care (01) | DRG 870 ==
LOC: ED 14:26 → EDIP 15:22 → ICU 17:27 → EDIP 17:36 → ICU 19:30 → 3N 01-11 19:24
PROVIDERS: ADMIT Internal Medicine; ATTEND Hospitalist
PROC: 5A1955Z Respiratory Ventilation, Greater than 96 Consecutive Hours (ICD-10-PCS; principal; 2019-12-31)
PROC: 0BH17EZ Insertion of Endotracheal Airway into Trachea, Via Natural or Artificial Opening (ICD-10-PCS; 2019-12-31)
PROC: 02HV33Z Insertion of Infusion Device into Superior Vena Cava, Percutaneous Approach (ICD-10-PCS; 2019-12-31)
PROC: 03HY32Z Insertion of Monitoring Device into Upper Artery, Percutaneous Approach (ICD-10-PCS; 2019-12-31)
PROC: XW033E5 Introduction of Remdesivir Anti-infective into Peripheral Vein, Percutaneous Approach, New Technology Group 5 (ICD-10-PCS; 2020-01-02)
DX: A41.89 Other specified sepsis (principal); U07.1 COVID-19; J12.89 Other viral pneumonia; E43 Unspecified severe protein-calorie malnutrition; G93.41 Metabolic encephalopathy; J81.0 Acute pulmonary edema; J96.01 Acute respiratory failure with hypoxia; R65.21 Severe sepsis with septic shock; Z99.11 Dependence on respirator [ventilator] status; E87.1 Hypo-osmolality and hyponatremia; E87.0 Hyperosmolality and hypernatremia; Z68.21 Body mass index [BMI] 21.0-21.9, adult; Z51.5 Encounter for palliative care; D72.820 Lymphocytosis (symptomatic); E83.51 Hypocalcemia; E87.6 Hypokalemia; F41.9 Anxiety disorder, unspecified; I10 Essential (primary) hypertension; J32.0 Chronic maxillary sinusitis; R73.03 Prediabetes
CPT/HCPCS: 36415; 36600; 70450; 71045; 80048; 80053; 80202; 82040; 82330; 82803; 82962; 83036; 83605; 83735; 84145; 84478; 84484; 85025; 87040; 87070; 87081; 87205; 87400; 87880; 93005; 94002; 94003; 96365; 99291; G0378; J0696; J1100; J1650; J1940; J2250; J2543; J2704; J3010; J3370; J0330; J1815; J7030; J7050; U0003